=== PATIENT | female | born 1930 | race Caucasian/White ===

== ENCOUNTER 2016-09-11 13:00 | Outpatient (RCR) | payer MEDICARE, OTHER | END 2016-09-18 12:00 | disposition home or self-care (01) | LOC: PT 13:00 | PROVIDERS: ATTEND Family Medicine | DX: M70.72 Other bursitis of hip, left hip (principal) | CPT/HCPCS: 97110; 97140; 97163; G8978; G8979 ==

== ENCOUNTER 2016-09-19 11:47 | Emergency (ER) | payer MEDICARE, OTHER ==
[~2016-09-19] VITALS: Ht 170.2 cm; Wt 107.2 kg
[2016-09-19] MEDS ORDERED: BACITRACIN OINTMENT 0.9 GM PACKET TOP ONE (13:15)
[2016-09-19 13:39] VITALS: BP 178/78
== END 2016-09-19 13:40 | disposition home or self-care (01) ==
LOC: EDUNIT# 11:47 → ED 11:50
DX: S60.512A Abrasion of left hand, initial encounter (principal); S70.12XA Contusion of left thigh, initial encounter; S20.212A Contusion of left front wall of thorax, initial encounter; S63.601A Unspecified sprain of right thumb, initial encounter; S63.502A Unspecified sprain of left wrist, initial encounter; W01.10XA Fall on same level from slipping, tripping and stumbling with subsequent striking against unspecified object, initial encounter; Y93.89 Activity, other specified; Y92.89 Other specified places as the place of occurrence of the external cause
CPT/HCPCS: 71020; 71100; 72170; 73110; 73140; 99283; A9270